=== PATIENT | male | born 1965 | race Hispanic/Latino ===

== ENCOUNTER 2025-06-17 14:27 | Emergency (ER) | payer OTHER ==
[~2025-06-17] VITALS: Ht 167.6 cm; Wt 95.3 kg
--- NOTE | 2025-06-17 15:32 | HMCIMG ---
CLINICAL INFORMATION Fall COMPARISON None. TECHNIQUE Volumetric helical CT images of the head without contrast FINDINGS Midline shift: None. Intracranial Hemorrhage: None. Extra axial spaces: Normal. Ventricular system: Normal for age. Basal cisterns: Normal. Cerebral parenchyma: Normal. Cerebellum: Normal. Brainstem: Normal. Skull: Normal. Vascular system: Normal. Paranasal sinuses: Normal. Mastoid air cells: Normal. Visualized Orbits: Normal. Visualized upper cervical spine: Normal. Skull base: Normal. Soft Tissues: Normal. IMPRESSION No acute intracranial findings. /[place]
--- NOTE | 2025-06-17 15:34 | HMCIMG ---
CLINICAL INFORMATION Fall COMPARISON None. TECHNIQUE Volumetric helical CT images of the cervical spine without contrast FINDINGS Vertebral Body Height: Normal. Alignment: Straightening of the normal lordosis. No listhesis. Disc spaces: Mild disc height loss C5-C6 and C6-C7, the anterior disc calcifications and mild uncovertebral spurring. Posterior Elements: Normal. Soft Tissues: Normal. Other: None. Craniocervical junction: Normal. Posterior fossa: Visualized contents unremarkable. IMPRESSION No acute fracture or traumatic subluxation. Mild cervical spondylosis C5-C6 and C6-C7. /[place]
--- NOTE | 2025-06-17 15:47 | ERN ---
General Chief Complaint: Mechanical Fall Stated Complaint: FALL Time Seen by MD: 14:36 Source: patient, family History of Present Illness Initial Comments Patient is a 60-year-old male coming in complaining of a fall. Per patient he was sitting in the chair fell asleep fell forward and hit himself in the back of the head. He is complaining of a headache and neck pain. Allergies: Coded Allergies: No Known Drug Allergies (Unverified Allergy, Unknown, 06/17/25) Past Medical History Past Medical History: Hypertension Past Surgical History: None ROS Dictation CONSTITUTIONAL: No chills, no fever, no weakness, no diaphoresis, no malaise. HEAD/FACE: No signs of trauma. EENT: No eye pain, no blurred vision, no tearing, no double vision, no ear pain, no ear discharge, no nose pain, no nasal congestion, no throat pain, no throat swelling, no mouth pain. RESPIRATORY: No cough, no orthopnea, no SOB, no stridor, no wheezing. CARDIOVASCULAR: No chest pain, no edema, no palpitations, no syncope. GASTROINTESTINAL/ABDOMINAL: No abdominal pain, no constipation, no diarrhea, no nausea, no vomiting. GENITOURINARY: No abnormal discharge, no dysuria, no frequent urination, no hematuria. No complaints of pain in the genitals. MUSCULOSKELETAL: No back pain, no gout, no joint pain, no joint swelling, no muscle pain, no muscle stiffness, neck pain. INTEGUMENTARY: No change in color, no change in hair/nails, no dryness, no lesion, no lumps, no rash. NEUROLOGICAL/PSYCH: No anxiety, not depressed, no emotional problem, no headache, no numbness, no pre-existing deficit, no history of seizures, no tremors, no weakness. HEMATOLOGIC/LYMPHATIC: Not anemic, no history of blood clots, no apparent bleeding, no bruising, glands not swollen. All Systems Negative, Except as Noted. Physical Exam Physical Exam Dictation VITAL SIGNS: Reviewed. GENERAL APPEARANCE: Alert, oriented x3, no acute distress, obese. HEAD AND FACE: Non-traumatic. EYES: PERRL, pink conjunctivas, eyelid no trauma, anterior chamber clear. EARS: Pinnas intact and no signs of trauma or erythema. Ear canals clear and no discharge. TMs no erythema. NOSE: No discharge, no bleeding. OROPHARYNX: Mouth normal, teeth no caries, tongue pink. Pharynx clear, no erythema. Tonsils no exudates, no abscesses noted. Mucous membrane moist. NECK: Supple, tender, no thyromegaly, no masses, no JVD, no bruits. BREAST: Deferred. CHEST: No tenderness, no crepitus, no paradoxical movement, no retractions. LUNGS: Clear, well-ventilated, symmetric, no rales, no wheezing, no rhonchi, no stridor, good breath sounds bilaterally. HEART: Regular rate, regular rhythm, no murmur, no gallops. VASCULAR: No peripheral edema. ABDOMEN: Soft, positive bowel sounds, nondistended, no guarding, nontender, no rebound, no masses no hepatomegaly, no splenomegaly, no Montemayor's sign, no hernias. RECTAL: Deferred. GENITAL: Deferred. NEUROLOGICAL: Normal speech, gross motor function intact, gross sensory function intact. 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 EXTREMITIES: Nontender, full range of motion. SKIN: Color pink, dry, no turgor, no rash, no lacerations, no abrasions, no contusions. LYMPHATICS: Deferred. Results Laboratory and Microbiology Labs Reviewed?: Yes EKG/XRAY/US/CT/MRI CT Scan Comment [id number] [id number] IMAGING REPORT Signed PATIENT: SULMA ARROYO MR#: [id number] : 1965 SEX: M AGE: 60 LOCATION: ED ORDER 43 STATUS: [facility] REPORT#: [id number] SERVICE [id number] REASON: fall ORDERING PHYSICIAN: EMERSON BEVERLY MD PROCEDURE: C SPIN WO - CT CERVICAL SPINE W/O CONTRAST CLINICAL INFORMATION Fall COMPARISON None. TECHNIQUE Volumetric helical CT images of the cervical spine without contrast FINDINGS Vertebral Body Height: Normal. Alignment: Straightening of the normal lordosis. No listhesis. Disc spaces: Mild disc height loss C5-C6 and C6-C7, the anterior disc calcifications and mild uncovertebral spurring. Posterior Elements: Normal. Soft Tissues: Normal. Other: None. Craniocervical junction: Normal. Posterior fossa: Visualized contents unremarkable. IMPRESSION No acute fracture or traumatic subluxation. Mild cervical spondylosis C5-C6 and C6-C7. /[place] DICTATED BY: LISSETH RICHARDS MD DATE: 06/17/251632 ELECTRONICALLY SIGNED BY: LISSETH RICHARDS MD DATE: 06/17/251632 [place] [id number] [place] [id number] IMAGING REPORT Signed PATIENT: SULMA ARROYO MR#: [id number] : 1965 SEX: M AGE: 60 LOCATION: EDH ORDER 43 STATUS: REG ER REPORT#: [id number] SERVICE 144 REASON: fall ORDERING PHYSICIAN: EMERSON BEVERLY MD PROCEDURE: HEAD WO - CT HEAD/BRAIN W/O CONTRAST CLINICAL INFORMATION Fall COMPARISON None. TECHNIQUE Volumetric helical CT images of the head without contrast FINDINGS Midline shift: None. Intracranial Hemorrhage: None. Extra axial spaces: Normal. Ventricular system: Normal for age. Basal cisterns: Normal. Cerebral parenchyma: Normal. Cerebellum: Normal. Brainstem: Normal. Skull: Normal. Vascular system: Normal. Paranasal sinuses: Normal. Mastoid air cells: Normal. Visualized Orbits: Normal. Visualized upper cervical spine: Normal. Skull base: Normal. Soft Tissues: Normal. IMPRESSION No acute intracranial findings. /[place] DICTATED BY: LISSETH RICHARDS MD DATE: 06/17/251631 ELECTRONICALLY SIGNED BY: LISSETH RICHARDS MD DATE: 06/17/25 163 [facility] MDM: Differential diagnosis: Fall, head injury, Rationale: Tests considered and ordered secondary to shared decision making include: Previous outside records reviewed: Old ER visits. Risk of complication and/or morbidity or mortality of patient management: None Medications-Per medication reconciliation Need for hospitalization: Patient does not meet criteria for hospitalization. Need for emergency major/minor surgery: No Patient is a 60-year-old male coming in after he had fallen from his state. Per patient patient was sitting in the chair fell asleep brought forward hit himself in the back of the head. Physical exam that has tenderness to the cervical spine as well as a head. CT did not disclose acute findings. Patient will be discharged in stable condition with a diagnosis of fall with a head injury. Patient will be discharged in stable condition ED Course Orders Procedure Category Date Status Time Ct Head/Brain W/O CT 06/17/25 Resulted Contrast 14:42 Ct Cervical Spine W/O CT 06/17/25 Resulted Contrast 14:42 Vital Signs Date Time Temp Pulse Resp B/P (MAP) Pulse Ox O2 Delivery O2 Flow Rate FiO2 06/17/25 14:29 98.1 94 16 164/95 95 Room Air DX & DISP Disposition: Discharge Departure Impression: Primary Impression: Fall Additional Impressions: Head injury, Wrist sprain Condition: Stable Additional Instructions: FOLLOW-UP WITH PRIMARY CARE PROVIDER IN 1 TO 2 DAYS. TAKE MEDICATIONS DIRECTED HERE IN THE EMERGENCY ROOM. OKAY TO CONTINUE HOME MEDICATIONS UNLESS OTHERWISE DISCUSSED DURING YOUR VISIT IN THE EMERGENCY ROOM TODAY. RETURN TO YOUR NEAREST EMERGENCY ROOM IF SYMPTOMS WORSEN OR IF THERE IS NO IMPROVEMENT. CALL 911 IF YOU NEED IMMEDIATE ASSISTANCE. TAKE TYLENOL [id number] NEEDED AND IF NO CONTRAINDICATIONS ARE PRESENT. INCREASE ORAL HYDRATION. A WOUND CULTURE OR URINE CULTURE WAS ORDERED HERE IN THE EMERGENCY ROOM DEPARTMENT PLEASE FOLLOW-UP WITH PRIMARY CARE PROVIDER AND ADVISE THEM TO GET REPORTS FROM OUR FACILITY. IF YOU HAD ANY MARCI WRAP/SPLINTS THAT WERE APPLIED HERE, PLEASE DO NOT REMOVE THEM UNTIL YOU SEE YOUR PRIMARY CARE OR SPECIALTY. Referrals: Referrals: SAM BOLTON MD (PCP) Time of Disposition: 15:59 EMERSON BEVERLY MD Jun 17, 2025 15:47
[2025-06-17 16:49] VITALS: BP 134/87; PULSE 78; RESP 16; TEMP 97.8; O2SAT 97
== END 2025-06-17 16:56 | disposition home or self-care (01) ==
LOC: EDH 14:27
DX: S09.90XA Unspecified injury of head, initial encounter (principal); S63.509A Unspecified sprain of unspecified wrist, initial encounter; I10 Essential (primary) hypertension; W07.XXXA Fall from chair, initial encounter; Y93.89 Activity, other specified; Y92.89 Other specified places as the place of occurrence of the external cause; Y99.8 Other external cause status
CPT/HCPCS: 70450; 72125; 99284